=== PATIENT | female | born 1985 | race Caucasian/White ===

== ENCOUNTER 2016-12-06 18:33 | Observation (INO) | payer OTHER ==
[~2016-12-06] VITALS: Ht 165.1 cm; Wt 125.6 kg
[2016-12-06 20:36] VITALS: BP_SYST 123
== END 2016-12-06 22:45 | disposition home or self-care (01) ==
LOC: SPU 18:33
PROVIDERS: ADMIT Specialist; ATTEND Specialist
DX: O36.8130 Decreased fetal movements, third trimester, not applicable or unspecified (principal)
CPT/HCPCS: 76819; 81002; G0378

== ENCOUNTER 2016-12-11 12:22 | Outpatient (CLI) | payer OTHER ==
[2016-12-11 13:26] LABS: BASOPHILS % (AUTO) 0.2 % (0.0-2.0); EOSINOPHILS # (AUTO) 0.1 K/uL (0.0-0.4); EOSINOPHILS % (AUTO) 0.9 % (0.0-4.0); HEMATOCRIT 32.7 % (36-48); LYMPHOCYTES % (AUTO) 15.1 % (20.5-51.5); MEAN CORPUSCULAR HEMOGLOBIN 30 pg (27-31); MEAN CORPUSCULAR HGB CONC 34 % (32-36); MEAN CORPUSCULAR VOLUME 89 fL (79.0-98.0); MONOCYTES # (AUTO) 0.6 K/uL (0.0-1.0); MONOCYTES % (AUTO) 4.8 % (1.7-9.3); NEUTROPHILS # (AUTO) 10.6 K/uL (1.8-7.7); PLATELET COUNT (AUTO) 182 K/uL (130-430); RED BLOOD CELL COUNT(AUTO) 3.66 MIL/uL (4.2-6.2); RED CELL DISTRIBUTION WIDTH 13.5 % (9.0-15.0); WHITE BLOOD COUNT (AUTO) 13.3 K/uL (4.8-10.8)
[2016-12-11 13:40] LABS: CALCIUM 9.8 mg/dL (8.4-11.0); CREATININE 0.65 mg/dL (0.55-1.30); POTASSIUM 4.1 mmol/L (3.5-5.1)
[2016-12-11 13:44] LABS: ALBUMIN 2.5 g/dL (3.4-4.8); TOTAL BILIRUBIN 0.3 mg/dL (0.0-1.0); URIC ACID 5.7 mg/dL (2.4-7.0)
[2016-12-11 14:05] LABS: INR 0.9 (0.8-1.2); PROTHROMBIN TIME 10.1 SECS (9.5-12.5)
== END 2016-12-11 18:31 | disposition home or self-care (01) ==
LOC: SLB 12:22
PROVIDERS: ATTEND Specialist
DX: O13.3 Gestational [pregnancy-induced] hypertension without significant proteinuria, third trimester (principal); Z3A.00 Weeks of gestation of pregnancy not specified
CPT/HCPCS: 36415; 80053; 84550-TC; 85025; 85379; 85384-TC; 85610-TC; 85730-TC

== ENCOUNTER 2016-12-17 16:00 | Inpatient (IN) | payer OTHER ==
[~2016-12-17] VITALS: Ht 165.1 cm; Wt 123.8 kg
[2016-12-17] MEDS ORDERED: LR 1,000 ML IV SCH (16:57)
[2016-12-17 17:25] LABS: BASOPHILS % (AUTO) 0.1 % (0.0-2.0); EOSINOPHILS # (AUTO) 0.1 K/uL (0.0-0.4); EOSINOPHILS % (AUTO) 0.6 % (0.0-4.0); HEMOGLOBIN 10.6 g/dL (12.0-16.0); LYMPHOCYTES # (AUTO) 1.8 K/uL (1.0-5.5); LYMPHOCYTES % (AUTO) 14.8 % (20.5-51.5); MEAN CORPUSCULAR HEMOGLOBIN 30 pg (27-31); MEAN CORPUSCULAR HGB CONC 33 % (32-36); MEAN CORPUSCULAR VOLUME 90 fL (79.0-98.0); MONOCYTES # (AUTO) 0.7 K/uL (0.0-1.0); MONOCYTES % (AUTO) 5.3 % (1.7-9.3); NEUTROPHILS # (AUTO) 9.8 K/uL (1.8-7.7); NEUTROPHILS % (AUTO) 79.2 % (40.0-70.0); PLATELET COUNT (AUTO) 173 K/uL (130-430); RED BLOOD CELL COUNT(AUTO) 3.58 MIL/uL (4.2-6.2); RED CELL DISTRIBUTION WIDTH 13.3 % (9.0-15.0); WHITE BLOOD COUNT (AUTO) 12.4 K/uL (4.8-10.8)
[2016-12-17 17:26] LABS: BILIRUBIN,URINE NEGATIVE (NEGATIVE); BLOOD, URINE NEGATIVE (NEGATIVE); CLARITY/URINE CLEAR (CLEAR); COLOR,URINE YELLOW (YELLOW); GLUCOSE,URINE NEGATIVE (NEGATIVE); KETONES,URINE NEGATIVE (NEGATIVE); LEUKOCYTE ESTERASE ,URINE TRACE (NEGATIVE); NITRITE, URINE NEGATIVE (NEGATIVE); PROTEIN URINE TRACE (NEGATIVE); UROBILINOGEN,URINE 0.2 (0.2-1.0)
[2016-12-17 17:37] LABS: CALCIUM 9.5 mg/dL (8.4-11.0); CREATININE 0.67 mg/dL (0.55-1.30); POTASSIUM 4.2 mmol/L (3.5-5.1)
[2016-12-17 17:40] LABS: INR 0.9 (0.8-1.2); PROTHROMBIN TIME 10.1 SECS (9.5-12.5)
[2016-12-17 17:42] LABS: ALBUMIN 2.5 g/dL (3.4-4.8); TOTAL BILIRUBIN 0.3 mg/dL (0.0-1.0); URIC ACID 6.8 mg/dL (2.4-7.0)
[2016-12-17 17:48] LABS: BACTERIA,URINE MODERATE /HPF (None Seen); RBC,URINE NONE SEEN /HPF (0-3)
[2016-12-17 17:49] LABS: MUCUS,URINE None Seen /LPF (None Seen)
[2016-12-18] MEDS ORDERED: LR 1,000 ML IV.SOLN IV ONE (08:55)
[2016-12-18] MEDS ORDERED: PROPOFOL 200MG/ 20ML VIAL (DIPRIVAN) IV ONE (08:55)
[2016-12-18] MEDS ORDERED: MIDAZOLAM HCL 5 MG/ML VIAL (VERSED) IV ONE (08:55)
[2016-12-18] MEDS ORDERED: OXYTOCIN 10 UNIT/ML VIAL IV ONE (08:55)
[2016-12-18] MEDS ORDERED: MORPHINE SULFATE 10MG/10ML PF AMP EP ONE (11:04)
[2016-12-18] MEDS ORDERED: CEFAZOLIN 2 GM IVPB PREMIX 50 ML IV ONE ×2 (12:09)
[2016-12-18] MEDS ORDERED: CITRIC ACID/SODIUM CITRATE 30 ML UDC ONE (12:09)
[2016-12-18] MEDS ORDERED: CITRIC ACID/SODIUM CITRATE 30 ML UDC PO ONE (12:09)
[2016-12-18] MEDS ORDERED: LR 1,000 ML IV ONE (14:40)
[2016-12-18] MEDS ORDERED: ONDANSETRON HCL 4 MG/2 ML VIAL IVP PRN ×2 (14:45)
[2016-12-18] MEDS ORDERED: NALOXONE HCL 0.4 MG/ML AMP (NARCAN) IVP PRN (14:45)
[2016-12-18] MEDS ORDERED: fentaNYL CITRATE/PF 100 MCG/2 ML AMP IVP PRN (14:45)
[2016-12-18] MEDS ORDERED: ePHEDrine sulfate 50 MG/ML VIAL IVP PRN (14:45)
[2016-12-18] MEDS ORDERED: NALBUPHINE HCL 10 MG/ML AMP IVP PRN (14:45)
[2016-12-18] MEDS ORDERED: KETOROLAC TROMETHAMINE 30 MG VIAL IM PRN (14:45)
[2016-12-18] MEDS ORDERED: DIPHENHYDRAMINE INJ 50 MG/ML VIAL IVP PRN (14:45)
[2016-12-18] MEDS ORDERED: fentaNYL CITRATE/PF 100 MCG/2 ML AMP ONE (15:04)
[2016-12-18] MEDS ORDERED: OXYTOCIN/NORMAL SALINE 1,000 ML IV ONE ×3 (15:09→20:29)
[2016-12-18 15:44] VITALS: BP_SYST 94
[2016-12-18] MEDS ORDERED: LR 1,000 ML IV SCH (20:29)
[2016-12-18] MEDS ORDERED: BISACODYL 10 MG/SUPPOSITORY RC PRN (20:30)
[2016-12-18] MEDS ORDERED: OXYCODONE/ACETAMINOPHEN 5-325 TABLET PO PRN (20:30)
[2016-12-18] MEDS ORDERED: IBUPROFEN 600 MG TABLET PO SCH (20:30)
[2016-12-18] MEDS: CEFAZOLIN 1 GM IVPB PREMIX 50 ML IV SCH (20:57)
[2016-12-19] MEDS ORDERED: KETOROLAC TROMETHAMINE 30 MG VIAL IVP SCH (01:00)
[2016-12-19] MEDS: KETOROLAC TROMETHAMINE 30 MG VIAL IVP SCH ×3 (01:49→13:11)
[2016-12-19] MEDS: CEFAZOLIN 1 GM IVPB PREMIX 50 ML IV SCH (03:16)
[2016-12-19 07:13] LABS: BASOPHILS % (AUTO) 0.3 % (0.0-2.0); EOSINOPHILS % (AUTO) 0.2 % (0.0-4.0); HEMATOCRIT 28.2 % (36-48); HEMOGLOBIN 9.4 g/dL (12.0-16.0); LYMPHOCYTES # (AUTO) 2.3 K/uL (1.0-5.5); LYMPHOCYTES % (AUTO) 16.9 % (20.5-51.5); MEAN CORPUSCULAR HEMOGLOBIN 30 pg (27-31); MEAN CORPUSCULAR HGB CONC 33 % (32-36); MEAN CORPUSCULAR VOLUME 91 fL (79.0-98.0); MONOCYTES # (AUTO) 0.9 K/uL (0.0-1.0); MONOCYTES % (AUTO) 6.5 % (1.7-9.3); NEUTROPHILS # (AUTO) 10.2 K/uL (1.8-7.7); NEUTROPHILS % (AUTO) 76.1 % (40.0-70.0); PLATELET COUNT (AUTO) 145 K/uL (130-430); RED CELL DISTRIBUTION WIDTH 13.5 % (9.0-15.0); WHITE BLOOD COUNT (AUTO) 13.4 K/uL (4.8-10.8)
[2016-12-19] MEDS: DOCUSATE SODIUM 100 MG CAPSULE PO PRN ×3 (09:05→20:42)
[2016-12-19] MEDS: OXYCODONE/ACETAMINOPHEN 5-325 TABLET PO PRN ×4 (09:06→23:26)
[2016-12-19] MEDS ORDERED: CEFAZOLIN 1 GM IVPB PREMIX 50 ML IV ONE (09:44)
[2016-12-19] MEDS: SENNOSIDES/DOCUSATE SODIUM 1 TAB TABLET(SENOKOT-S) PO PRN ×2 (13:11→20:42)
[2016-12-19] MEDS: SIMETHICONE 80 MG TAB.CHEW PO PRN ×3 (13:12→23:25)
[2016-12-19] MEDS ORDERED: CEFAZOLIN 2 GM IVPB PREMIX 50 ML IV ONE (13:30)
[2016-12-19] MEDS ORDERED: CITRIC ACID/SODIUM CITRATE 30 ML UDC PO ONE (13:30)
--- NOTE | 2016-12-19 14:47 | NUR ---
Dietitian Recommendations * Recommend continuing regular diet per LP, RD
[2016-12-19] MEDS: IBUPROFEN 600 MG TABLET PO SCH (17:47)
[2016-12-20] MEDS: OXYCODONE/ACETAMINOPHEN 5-325 TABLET PO PRN ×5 (02:33→22:07)
[2016-12-20] MEDS: IBUPROFEN 600 MG TABLET PO SCH ×5 (02:35→23:17)
[2016-12-20] MEDS: SIMETHICONE 80 MG TAB.CHEW PO PRN (09:49)
[2016-12-20] MEDS: DOCUSATE SODIUM 100 MG CAPSULE PO PRN ×2 (09:49→22:07)
[2016-12-21] MEDS: OXYCODONE/ACETAMINOPHEN 5-325 TABLET PO PRN ×2 (04:11→22:30)
[2016-12-21] MEDS: IBUPROFEN 600 MG TABLET PO SCH (05:57)
[2016-12-22] MEDS: IBUPROFEN 600 MG TABLET PO SCH ×3 (00:23→14:14)
[2016-12-22] MEDS: OXYCODONE/ACETAMINOPHEN 5-325 TABLET PO PRN ×2 (05:33→16:52)
[2016-12-22] MEDS ORDERED: FLU VACC QS 2017-18(36MOS+)/PF 0.5 ML/SYR SYRINGE I.M. PRN (11:45)
[2016-12-22] MEDS ORDERED: DIPH-TET-PERTUS Vaccine 0.5 ML VIAL (ADACEL) I.M. ONE (12:00)
[2016-12-22] MEDS: SENNOSIDES/DOCUSATE SODIUM 1 TAB TABLET(SENOKOT-S) PO PRN ×2 (12:59→14:15)
[2016-12-22] MEDS: DOCUSATE SODIUM 100 MG CAPSULE PO PRN ×2 (12:59→14:16)
[2016-12-22] MEDS ORDERED: DIPH-TET-PERTUS Vaccine 0.5 ML VIAL (ADACEL) I.M. PRN (14:00)
[2016-12-22] MEDS: SIMETHICONE 80 MG TAB.CHEW PO PRN (14:16)
[2016-12-22] MEDS ORDERED: HYDROCORTISONE 0.5%, 28.35 GM TOPICAL CREAM TP SCH (21:00)
== END 2016-12-22 17:15 | disposition home or self-care (01) | DRG 765 ==
LOC: OBSVTOIN 16:00 → SPU 16:00
PROVIDERS: ADMIT Specialist; ATTEND Specialist
PROC: 10D00Z1 Extraction of Products of Conception, Low, Open Approach (ICD-10-PCS; principal; 2016-12-18 13:00)
DX: O30.003 Twin pregnancy, unspecified number of placenta and unspecified number of amniotic sacs, third trimester (principal); O60.14X0 Preterm labor third trimester with preterm delivery third trimester, not applicable or unspecified; O13.4 Gestational [pregnancy-induced] hypertension without significant proteinuria, complicating childbirth; Z3A.34 34 weeks gestation of pregnancy; Z37.2 Twins, both liveborn; O32.1XX1 Maternal care for breech presentation, fetus 1; O32.2XX0 Maternal care for transverse and oblique lie, not applicable or unspecified
CPT/HCPCS: 36415; 80053; 81000-TC; 84550-TC; 85025; 85379; 85384-TC; 85610-TC; 85730-TC; 86592; 86886; 86900; 86901; 88307; 90715; 94760; J0690; J1885; J2250; J2274; J2590; J2704; J3010; J7120; Q2037

== ENCOUNTER 2017-06-14 12:25 | Day surgery (SDC) | payer OTHER ==
[~2017-06-14] VITALS: Ht 165.1 cm; Wt 113.9 kg
[2017-06-14] MEDS ORDERED: CEFAZOLIN 1 GM IVPB PREMIX 50 ML IV ONE ×2 (13:00→13:08)
[2017-06-14 13:18] LABS: BASOPHILS # (AUTO) 0.1 K/uL (0.0-0.2); BASOPHILS % (AUTO) 0.7 % (0.0-2.0); EOSINOPHILS # (AUTO) 0.2 K/uL (0.0-0.4); EOSINOPHILS % (AUTO) 1.9 % (0.0-4.0); HEMATOCRIT 38.4 % (36-48); HEMOGLOBIN 12.7 g/dL (12.0-16.0); LYMPHOCYTES # (AUTO) 2.3 K/uL (1.0-5.5); LYMPHOCYTES % (AUTO) 24.2 % (20.5-51.5); MEAN CORPUSCULAR HEMOGLOBIN 28 pg (27-31); MEAN CORPUSCULAR HGB CONC 33 % (32-36); MEAN CORPUSCULAR VOLUME 84 fL (79.0-98.0); MONOCYTES # (AUTO) 0.4 K/uL (0.0-1.0); MONOCYTES % (AUTO) 4.5 % (1.7-9.3); NEUTROPHILS # (AUTO) 6.5 K/uL (1.8-7.7); NEUTROPHILS % (AUTO) 68.7 % (40.0-70.0); PLATELET COUNT (AUTO) 244 K/uL (130-430); RED BLOOD CELL COUNT(AUTO) 4.59 MIL/uL (4.2-6.2); RED CELL DISTRIBUTION WIDTH 12.7 % (9.0-15.0); WHITE BLOOD COUNT (AUTO) 9.5 K/uL (4.8-10.8)
[2017-06-14] MEDS ORDERED: NS IRRIG SOLN 1000 ML IR ONE (13:30)
[2017-06-14] MEDS ORDERED: MIDAZOLAM HCL 5 MG/5 ML VIAL IVP ONE (13:30)
[2017-06-14] MEDS ORDERED: ONDANSETRON HCL 4 MG/2 ML VIAL IVP ONE (13:30)
[2017-06-14] MEDS ORDERED: NS 1000 ML BAG IV ONE (13:30)
[2017-06-14] MEDS ORDERED: MIDAZOLAM HCL 5 MG/5 ML VIAL ONE (14:01)
[2017-06-14 14:13] LABS: BILIRUBIN,URINE NEGATIVE (NEGATIVE); BLOOD, URINE NEGATIVE (NEGATIVE); CLARITY/URINE CLEAR (CLEAR); COLOR,URINE YELLOW (YELLOW); GLUCOSE,URINE NEGATIVE (NEGATIVE); KETONES,URINE NEGATIVE (NEGATIVE); LEUKOCYTE ESTERASE ,URINE NEGATIVE (NEGATIVE); NITRITE, URINE NEGATIVE (NEGATIVE); PH,URINE 7.5 (5.0-8.0); PROTEIN URINE NEGATIVE (NEGATIVE); UROBILINOGEN,URINE 0.2 (0.2-1.0)
[2017-06-14] MEDS ORDERED: HYDROcodone/ACETAMIN 5-325 MG TAB (NORCO/ VICODIN) PO PRN (14:45)
[2017-06-14] MEDS ORDERED: ONDANSETRON HCL 4 MG/2 ML VIAL IVP PRN (14:45)
[2017-06-14] MEDS ORDERED: OXYCODONE/ACETAMINOPHEN 5-325 TABLET PO PRN (14:45)
[2017-06-14] MEDS ORDERED: LR 1,000 ML IV SCH (14:52)
[2017-06-14] MEDS ORDERED: HYDROmorphone 2 MG/ML VIAL IVP PRN ×2 (15:00)
[2017-06-14] MEDS ORDERED: MEPERIDINE HCL/PF 25 MG/ML DISP.SYRIN IVP PRN (15:00)
[2017-06-14] MEDS ORDERED: HYDROmorphone 1 MG INJ. 1 MG/ML AMPUL IVP PRN (15:00)
[2017-06-14 15:47] VITALS: BP_SYST 122
== END 2017-06-14 19:30 | disposition home or self-care (01) ==
LOC: SDS 12:25
PROVIDERS: ATTEND Specialist
DX: N93.9 Abnormal uterine and vaginal bleeding, unspecified (principal); E66.01 Morbid (severe) obesity due to excess calories
CPT/HCPCS: 36415; 81003; 84703; 85025; 88305; J0690; J2250; J2405; J7030

== ENCOUNTER 2018-03-31 12:22 | Outpatient (CLI) | payer OTHER | END 2018-03-31 18:58 | disposition home or self-care (01) | LOC: SLB 12:22 | PROVIDERS: ATTEND Specialist | DX: N83.209 Unspecified ovarian cyst, unspecified side (principal) | CPT/HCPCS: 36415; 86304 ==

== ENCOUNTER 2018-04-01 10:21 | Outpatient (CLI) | payer OTHER ==
[2018-04-01] MEDS ORDERED: IOHEXOL 50 ML IV ONE (10:41)
== END 2018-04-01 19:21 | disposition home or self-care (01) ==
LOC: SRD 10:21
PROVIDERS: ATTEND Specialist
DX: N91.2 Amenorrhea, unspecified (principal)
CPT/HCPCS: 74740; C1751; Q9967

== ENCOUNTER 2018-07-09 11:05 | Outpatient (CLI) | payer OTHER ==
[2018-07-09 11:28] LABS: BASOPHILS # (AUTO) 0.1 K/uL (0.0-0.2); EOSINOPHILS # (AUTO) 0.3 K/uL (0.0-0.4); HEMATOCRIT 41.1 % (36-48); HEMOGLOBIN 13.9 g/dL (12.0-16.0); LYMPHOCYTES # (AUTO) 2.4 K/uL (1.0-5.5); LYMPHOCYTES % (AUTO) 26.5 % (20.5-51.5); MEAN CORPUSCULAR HEMOGLOBIN 29 pg (27-31); MEAN CORPUSCULAR HGB CONC 34 % (32-36); MEAN CORPUSCULAR VOLUME 85 fL (79.0-98.0); MONOCYTES # (AUTO) 0.5 K/uL (0.0-1.0); MONOCYTES % (AUTO) 5.2 % (1.7-9.3); NEUTROPHILS # (AUTO) 5.8 K/uL (1.8-7.7); NEUTROPHILS % (AUTO) 64.3 % (40.0-70.0); PLATELET COUNT (AUTO) 261 K/uL (130-430); RED BLOOD CELL COUNT(AUTO) 4.82 MIL/uL (4.2-6.2); RED CELL DISTRIBUTION WIDTH 13.7 % (9.0-15.0)
[2018-07-09 12:03] LABS: ALBUMIN 3.4 g/dL (3.4-4.8); CALCIUM 9.6 mg/dL (8.4-11.0); CREATININE 0.82 mg/dL (0.55-1.30); THYROID STIMULATING HORMONE 1.77 uIu/mL (0.34-4.82); TOTAL BILIRUBIN 0.5 mg/dL (0.0-1.0)
[2018-07-10 04:06] LABS: HEMOGLOBIN A1C 5.3 % (4.8-5.6)
== END 2018-07-09 19:29 | disposition home or self-care (01) ==
LOC: SRD 11:05
PROVIDERS: ATTEND Internal Medicine
DX: J18.9 Pneumonia, unspecified organism (principal)
CPT/HCPCS: 36415; 71046-TC; 80053; 80061; 82306; 82607; 83036; 84443-TC; 85025

== ENCOUNTER 2018-12-01 15:01 | Outpatient (CLI) | payer OTHER ==
[2018-12-01 15:46] LABS: BILIRUBIN,URINE NEGATIVE (NEGATIVE); BLOOD, URINE NEGATIVE (NEGATIVE); CLARITY/URINE SL HAZY (CLEAR); COLOR,URINE YELLOW (YELLOW); GLUCOSE,URINE NEGATIVE (NEGATIVE); KETONES,URINE NEGATIVE (NEGATIVE); LEUKOCYTE ESTERASE ,URINE NEGATIVE (NEGATIVE); NITRITE, URINE NEGATIVE (NEGATIVE); PROTEIN URINE NEGATIVE (NEGATIVE); UROBILINOGEN,URINE 0.2 (0.2-1.0)
== END 2018-12-01 21:06 | disposition home or self-care (01) ==
LOC: SLB 15:01
PROVIDERS: ATTEND Internal Medicine
DX: N39.0 Urinary tract infection, site not specified (principal)
CPT/HCPCS: 81003; 87086

== ENCOUNTER 2020-04-07 16:15 | Observation (INO) | payer BC, SELFPAY ==
[~2020-04-07] VITALS: Ht 165.1 cm; Wt 124.7 kg
[2020-04-07] MEDS ORDERED: LR 1,000 ML IV SCH ×2 (16:45→20:00)
[2020-04-07 17:16] LABS: BASOPHILS # (AUTO) 0.1 K/uL (0.0-0.2); BASOPHILS % (AUTO) 0.5 % (0.0-2.0); EOSINOPHILS # (AUTO) 0.1 K/uL (0.0-0.4); EOSINOPHILS % (AUTO) 1.1 % (0.0-4.0); HEMATOCRIT 35.1 % (36-48); HEMOGLOBIN 12.1 g/dL (12.0-16.0); LYMPHOCYTES # (AUTO) 2.2 K/uL (1.0-5.5); LYMPHOCYTES % (AUTO) 16.7 % (20.5-51.5); MEAN CORPUSCULAR HEMOGLOBIN 29 pg (27-31); MEAN CORPUSCULAR HGB CONC 34 % (32-36); MEAN CORPUSCULAR VOLUME 85 fL (79.0-98.0); MONOCYTES # (AUTO) 0.4 K/uL (0.0-1.0); MONOCYTES % (AUTO) 3.3 % (1.7-9.3); NEUTROPHILS # (AUTO) 10.1 K/uL (1.8-7.7); NEUTROPHILS % (AUTO) 78.4 % (40.0-70.0); PLATELET COUNT (AUTO) 208 K/uL (130-430); RED BLOOD CELL COUNT(AUTO) 4.13 MIL/uL (4.2-6.2); RED CELL DISTRIBUTION WIDTH 13.6 % (9.0-15.0); WHITE BLOOD COUNT (AUTO) 12.9 K/uL (4.8-10.8)
[2020-04-07] MEDS ORDERED: NALOXONE HCL 0.4 MG/ML AMP (NARCAN) IVP PRN ×2 (19:30→20:00)
[2020-04-07] MEDS ORDERED: ONDANSETRON HCL 4 MG/2 ML VIAL IVP PRN ×2 (19:30→20:00)
[2020-04-07] MEDS ORDERED: HYDROcodone/ACETAMIN 5-325 MG TAB (NORCO/ VICODIN) PO PRN (19:30)
[2020-04-07] MEDS ORDERED: OXYCODONE/ACETAMINOPHEN 5-325 TABLET PO PRN ×2 (19:30)
[2020-04-07] MEDS ORDERED: METOCLOPRAMIDE HCL 10 MG/2 ML VIAL IVP PRN (20:00)
[2020-04-07] MEDS ORDERED: HYDROmorphone 1 MG INJ. 1 MG/ML AMPUL IVP PRN ×2 (20:00)
[2020-04-07] MEDS ORDERED: KETOROLAC TROMETHAMINE 30 MG VIAL IVP PRN ×3 (20:00)
[2020-04-07 20:11] VITALS: BP_SYST 121
== END 2020-04-07 23:43 | disposition home or self-care (01) ==
LOC: SPU 16:15
PROVIDERS: ADMIT Specialist; ATTEND Specialist
DX: O00.101 Right tubal pregnancy without intrauterine pregnancy (principal); Z20.822 Contact with and (suspected) exposure to COVID-19; O99.211 Obesity complicating pregnancy, first trimester; E66.01 Morbid (severe) obesity due to excess calories; O99.513 Diseases of the respiratory system complicating pregnancy, third trimester; J45.909 Unspecified asthma, uncomplicated; Z68.42 Body mass index [BMI] 45.0-49.9, adult; Z3A.01 Less than 8 weeks gestation of pregnancy; Z79.899 Other long term (current) drug therapy
CPT/HCPCS: 36415; 58661; 85025; 86886; 86900; 86901; 86920; 87426; 96374; C1727; C1782; G0378; J2405; J7120